=== PATIENT | female | born 1930 | race Caucasian/White ===

== ENCOUNTER → 2016-10-04 | Outpatient (CLI) | payer OTHER ==
[~2016-10-04] MED LIST: ALBU1AER9 INH; AMOX500C3 PO; ASPI81TA28 PO; ATOR-24 PO; CALC500C70 PO; FERR325T51 PO; GLUC-172 PO; HYDR-5688 PO; LEVO100T7 PO; LORA-741 PO; METO50TA16 PO; MULT-506 PO; POLY335025 PO; PRLSR20 PO; SERT-234 PO; TRAM-10 PO
== END | disposition home or self-care (01) ==
LOC: C.LABMFLN 09:10
PROVIDERS: ATTEND Family Medicine
DX: R30.0 Dysuria (principal)

== ENCOUNTER → 2017-02-02 | Outpatient (CLI) | payer OTHER ==
[2017-02-02 14:30] LABS: ALT/SGPT 20 U/L (12-78); AST/SGOT 23 U/L (15-37); BLOOD UREA NITROGEN 19 mg/dl (7-18); BUN/CREATININE RATIO 14.9 (10-20); CALCIUM 9.1 mg/dl (8.5-10.1); CARBON DIOXIDE 23 mmol/L (21-32); CHLORIDE 112 mmol/L (98-107); GLUCOSE 106 mg/dl (70-99); POTASSIUM 4.1 mmol/L (3.5-5.1); SODIUM 144 mmol/L (136-145)
[2017-02-02 14:41] LABS: CHOLESTEROL 205 mg/dl (0-200); CHOLESTEROL/HDL RATIO 2.7; HDL CHOLESTEROL 77 mg/dl; LDL CHOLESTEROL CALCULATED 109 mg/dl; TRIGLYCERIDES 96 mg/dl (0-150); VERY LOW DENSITY LIPOPROT CALC 19 mg/dl
== END ==
LOC: C.LABMFLN 11:11
PROVIDERS: ATTEND Family Medicine
DX: E78.00 Pure hypercholesterolemia, unspecified (principal); E03.9 Hypothyroidism, unspecified; I10 Essential (primary) hypertension; M85.80 Other specified disorders of bone density and structure, unspecified site

== ENCOUNTER → 2017-02-14 | Outpatient (CLI) | payer OTHER ==
[2017-02-14 17:40] LABS: URINE APPEARANCE TURBID (CLEAR); URINE BILIRUBIN NEG (NEG); URINE COLOR DK YELLOW; URINE EPITHELIAL CELL AUTO >30 /lpf (0-5); URINE NITRITE NEG (NEG); URINE SPECIFIC GRAVITY 1.029 (1.000-1.030); UROBILINOGEN NEG (NEG)
[2017-02-14 17:47] LABS: MANUAL MICROSCOPIC REQUIRED? NO; REVIEW REQ? YES
== END | disposition home or self-care (01) ==
LOC: C.LABMFLN 10:27
PROVIDERS: ATTEND Family Medicine
DX: R10.32 Left lower quadrant pain (principal)

== ENCOUNTER → 2017-03-28 | Outpatient (CLI) | payer OTHER | END | disposition home or self-care (01) | LOC: C.LABMFLN 11:26 | PROVIDERS: ATTEND Family Medicine | DX: E03.9 Hypothyroidism, unspecified (principal) ==

== ENCOUNTER → 2017-08-01 | Outpatient (CLI) | payer OTHER ==
[2017-08-01 18:16] LABS: URINE APPEARANCE CLEAR (CLEAR); URINE BILIRUBIN NEG (NEG); URINE COLOR YELLOW; URINE EPITHELIAL CELL AUTO >30 /lpf (0-5); URINE NITRITE NEG (NEG); URINE SPECIFIC GRAVITY 1.016 (1.000-1.030); UROBILINOGEN NEG (NEG)
[2017-08-01 18:20] LABS: MANUAL MICROSCOPIC REQUIRED? NO; REVIEW REQ? NO
== END | disposition home or self-care (01) ==
LOC: C.LABMFLN 11:39
PROVIDERS: ATTEND Family Medicine
DX: R30.0 Dysuria (principal)

== ENCOUNTER → 2017-12-12 | Outpatient (CLI) | payer OTHER ==
[2017-12-12 18:33] LABS: ALBUMIN 3.3 gm/dl (3.4-5.0); ALT/SGPT 15 U/L (12-78); AST/SGOT 20 U/L (15-37); BLOOD UREA NITROGEN 12 mg/dl (7-18); CALCIUM 9.3 mg/dl (8.5-10.1); CARBON DIOXIDE 23 mmol/L (21-32); CREATININE 0.97 mg/dl (0.60-1.20); GLUCOSE 90 mg/dl (70-99); LIPASE 131 U/L (73-393); SODIUM 135 mmol/L (136-145)
[2017-12-12 18:42] LABS: ALKALINE PHOSPHATASE 84 U/L (45-117); CHOLESTEROL 252 mg/dl (0-200); LDL CHOLESTEROL CALCULATED 170 mg/dl; TOTAL PROTEIN 7.4 gm/dl (6.4-8.2)
== END | disposition home or self-care (01) ==
LOC: C.LABMFLN 14:10
PROVIDERS: ATTEND Family Medicine
DX: E78.00 Pure hypercholesterolemia, unspecified (principal); E03.9 Hypothyroidism, unspecified; I10 Essential (primary) hypertension; R10.32 Left lower quadrant pain

== ENCOUNTER → 2018-01-21 | Outpatient (CLI) | payer OTHER ==
[~2018-01-21] MED LIST changes: +OPTIRAY 320 IV PRN
--- NOTE | 2018-01-21 12:14 | DIAGNOSTIC IMAGING REPORT ---
HEAD CT WITH AND WITHOUT INTRAVENOUS CONTRAST HISTORY: Memory loss. TECHNIQUE: Multiaxial CT images of the head were performed both before and after the intravenous administration of contrast. COMPARISON STUDY: Head CT 12/15/2015. FINDINGS: There is no mass, hematoma, midline shift, acute infarct. Mild atrophy and mild microvascular ischemic changes are again noted. This is not significantly changed. Postcontrast sequences show no areas of abnormal enhancement. The calvarium and skull base are intact. Paranasal sinuses and mastoid air cells are clear. IMPRESSION: No significant change compared the prior study. No acute intracranial abnormality. Electronically signed by: Velasquez Gudino M.D. 01/21/2018 12:13 PM Dictated Date/Time: 01/21/2018 12:07 PM
== END | disposition home or self-care (01) ==
LOC: C.CTS 11:45
PROVIDERS: ATTEND Family Medicine
DX: R41.3 Other amnesia (principal)

== ENCOUNTER → 2018-04-22 | Outpatient (CLI) | payer OTHER ==
[~2018-04-22] MED LIST changes: -OPTIRAY 320 IV PRN
== END | disposition home or self-care (01) ==
LOC: C.LABMFLN 08:15
PROVIDERS: ATTEND Family Medicine
DX: E03.9 Hypothyroidism, unspecified (principal)